=== PATIENT | male | born 1945 | race Caucasian/White ===

== ENCOUNTER → 2017-01-03 | Outpatient (REF) | payer OTHER ==
[~2017-01-03] MED LIST: ATEN25TA; HYDR25TA6; LEVA250T; LOPI600T; ZOCO40TA
== END ==
LOC: M LAB 13:18
PROVIDERS: ATTEND Surgery
DX: C44.41 Basal cell carcinoma of skin of scalp and neck (principal)

== ENCOUNTER → 2018-05-14 | Outpatient (REF) | payer OTHER | LOC: M SFHCLERA 09:44 | DX: L98.9 Disorder of the skin and subcutaneous tissue, unspecified (principal) | CPT/HCPCS: 88305 ==

== ENCOUNTER 2018-08-17 15:52 | Emergency (ER) | payer OTHER ==
[2018-08-17 16:35] LABS: BASO # 0.1 10^3/uL (0.0-0.2); BASO % 0.5 % (0.0-1.0); EOS # 0.2 10^3/uL (0.0-0.50); EOS % 1.8 % (0.0-3.0); HEMATOCRIT 38.2 % (42.0-52.0); HEMOGLOBIN 12.8 g/dl (13.5-17.5); IMMATURE GRANULOCYTE % 0.3 % (0-3.0); LYMPH # 1.1 10^3/uL (1.5-4.5); LYMPH % 10.8 % (24.0-44.0); MEAN CORPUSCULAR HGB CONC 33.5 g/dl (32.0-36.5); MEAN CORPUSCULAR VOLUME 86.6 fl (80.0-96.0); MONO # 1.1 10^3/uL (0.0-0.8); MONO % 10.8 % (0.0-5.0); NEUTROPHILS # 7.8 10^3/uL (1.8-7.7); NEUTROPHILS % 75.8 % (36.0-66.0); PLATELET COUNT, AUTOMATED 167 10^3/uL (150-450); RED BLOOD COUNT 4.41 10^6/uL (4.30-6.10); RED CELL DISTRIBUTION WIDTH 12.8 % (11.5-14.5); WHITE BLOOD COUNT 10.3 10^3/uL (4.0-10.0)
[2018-08-17 16:45] LABS: INR 0.93; PROTHROMBIN TIME 12.6 SECONDS (12.1-14.4)
[2018-08-17 16:46] LABS: PARTIAL THROMBOPLASTIN TIME 29.7 SECONDS (25.4-37.6)
[2018-08-17 16:55] LABS: AMORPHOUS SEDIMENT RFX SMALL (NEGATIVE); KETONE, URINE AUTO RFX NEGATIVE (NEGATIVE); MUCUS, URINE RFX SMALL (NEGATIVE); NITRITE, URINE AUTO RFX NEGATIVE (NEGATIVE); RBC, URINE AUTO RFX TNTC /HPF (0-3); SPECIFIC GRAVITY UR AUTO RFX 1.018 (1.002-1.035); SQUAM EPITHELIAL CELL UR AURFX 0 /HPF (0-6); URIC ACID CRYSTALS RFX SMALL; YEAST LIKE CELL URINE AUTO RFX SMALL
[2018-08-17 16:57] LABS: LEUKOCYTE ESTERASE UR AUTO RFX TRACE (NEGATIVE)
[2018-08-17 16:58] LABS: WBC, URINE AUTO RFX 17 /HPF (0-3)
[2018-08-17 17:02] LABS: ALBUMIN 3.5 GM/DL (3.2-5.2); ALKALINE PHOSPHATASE 66 U/L (45-117); ALT/SGPT 17 U/L (12-78); AMYLASE 32 U/L (25-115); ANION GAP 8 MEQ/L (8-16); AST/SGOT 13 U/L (7-37); BILIRUBIN,DIRECT 0.1 MG/DL (0.0-0.2); BILIRUBIN,TOTAL 0.6 MG/DL (0.2-1.0); BLOOD UREA NITROGEN 25 MG/DL (7-18); CALCIUM LEVEL 9.6 MG/DL (8.8-10.2); CARBON DIOXIDE LEVEL 25 MEQ/L (21-32); CHLORIDE LEVEL 107 MEQ/L (98-107); CREATININE FOR GFR 2.29 MG/DL (0.70-1.30); GLOMERULAR FILTRATION RATE 30.1 (>42); GLUCOSE, FASTING 115 MG/DL (70-100); LIPASE 123 U/L (73-393); POTASSIUM SERUM 3.7 MEQ/L (3.5-5.1); SODIUM LEVEL 140 MEQ/L (136-145); TOTAL PROTEIN 7.4 GM/DL (6.4-8.2)
[2018-08-17] MEDS: NS 1,000 ML IV (17:36)
[2018-08-17] MEDS ORDERED: NORCO, ANEXSIA 5/325MG TABLET (HYDROcodone/ACETAMINOPHEN) As Ordered (18:48)
[2018-08-17] MEDS: NORCO, ANEXSIA 5/325MG TABLET (HYDROcodone/ACETAMINOPHEN) PO (18:50)
[2018-08-17] MEDS: NORCO 5/325MG TABLET (BULK FOR ED) PO (19:46)
== END 2018-08-17 19:48 | disposition home or self-care (01) ==
LOC: M ED 15:52
DX: N20.1 Calculus of ureter (principal); R73.03 Prediabetes; I10 Essential (primary) hypertension; Z87.442 Personal history of urinary calculi; N40.0 Benign prostatic hyperplasia without lower urinary tract symptoms; K57.30 Diverticulosis of large intestine without perforation or abscess without bleeding; K76.89 Other specified diseases of liver; J30.2 Other seasonal allergic rhinitis; Z79.82 Long term (current) use of aspirin; Z79.84 Long term (current) use of oral hypoglycemic drugs; Z79.899 Other long term (current) drug therapy
CPT/HCPCS: 74176

== ENCOUNTER 2018-11-10 06:34 | Day surgery (SDC) | payer OTHER ==
[~2018-11-10] VITALS: Ht 182.9 cm; Wt 88.0 kg
[~2018-11-10 06:34] MED LIST changes: +ASPI81TA85 PO; +ATOR1TAB21 PO; +BACT800T5 PO; +CARV12.5 PO; +CARV25TA PO; +FLOM0.4C39 PO; +INDA125TA PO; +LOSA-4 PO; +METF500T4 PO; +NORCOTAB PO; +NS 1,000 ML IV ONE; +TERB250T12 PO
[2018-11-10] MEDS ORDERED: LIDOCAINE 2% INJ 100 MG/5 ML SDV (FOR ANES.) As Ordered ONE (07:09)
[2018-11-10] MEDS ORDERED: PROPOFOL 200 MG/20 ML VIAL As Ordered ONE (07:09)
--- NOTE | 2018-11-10 07:49 | ROOR ---
Patient Name: Dean Frey Procedure Date: 11/10/2018 7:31 AM Date of : 1945 Age: 72 Room: [facility] Gender: Male Note Status: Finalized Procedure: Total Colonoscopy to Cecum + Biopsy Polypectomy Indications: High risk colon cancer surveillance: Personal history of colonic polyps, Last colonoscopy: 2013 Providers: Kyler Gloria MD Referring MD: SHEILA SHIRLEY JR, MD Requesting Provider: Medicines: Monitored Anesthesia Care Complications: No immediate complications. Procedure: Pre-Anesthesia Assessment: - The heart rate, respiratory rate, oxygen saturations, blood pressure, adequacy of pulmonary ventilation, and response to care were monitored throughout the procedure. The Colonoscope was introduced through the anus and advanced to the cecum, identified by appendiceal orifice and ileocecal valve. The colonoscopy was performed without difficulty. The patient tolerated the procedure well. The quality of the bowel preparation was fair. Findings: The perianal and digital rectal examinations were normal. Non-bleeding internal hemorrhoids were found during retroflexion. The hemorrhoids were small and Grade I (internal hemorrhoids that do not prolapse). A diminutive polyp was found in the ascending colon. The polyp was sessile. The polyp was removed with a jumbo cold forceps. Resection and retrieval were complete. Multiple small and large-mouthed diverticula were found in the recto-sigmoid colon, sigmoid colon and descending colon. The exam was otherwise without abnormality on direct and retroflexion views. Impression: - Preparation of the colon was fair. - Non-bleeding internal hemorrhoids. - One diminutive polyp in the ascending colon, removed with a jumbo cold forceps. Resected and retrieved. - Diverticulosis in the recto-sigmoid colon, in the sigmoid colon and in the descending colon. - The examination was otherwise normal on direct and retroflexion views. - The exam was otherwise normal to the cecum. Recommendation: - Patient has a contact number available for emergencies. The signs and symptoms of potential delayed complications were discussed with the patient. Return to normal activities tomorrow. Written discharge instructions were provided to the patient. - High fiber diet. - Discharge patient to home. - Continue present medications. - Await pathology results. - Telephone GI clinic for pathology results in 1 week. - Repeat colonoscopy for symptoms only. - Return to referring physician. - The findings and recommendations were discussed with the patient's family. Kyler Gloria MD Kyler Gloria MD 11/10/2018 7:49:18 AM This report has been signed electronically. Number of Addenda: 0 Note Initiated On: 11/10/2018 7:31 AM Estimated Blood Loss: Estimated blood loss: none.
[2018-11-10 10:34] VITALS: BP 137/74
== END 2018-11-10 08:16 | disposition home or self-care (01) ==
LOC: M OPP 06:34
PROVIDERS: ATTEND Internal Medicine Gastroenterology
DX: D12.2 Benign neoplasm of ascending colon (principal); K57.30 Diverticulosis of large intestine without perforation or abscess without bleeding; K64.0 First degree hemorrhoids; Z86.010 Personal history of colon polyps

== ENCOUNTER → 2019-07-06 | Outpatient (REF) | payer OTHER ==
[~2019-07-06] MED LIST changes: +HYDR-3715 PO; -LOSA-4 PO; +LOSA100T50 PO; -NORCOTAB PO; -NS 1,000 ML IV ONE
== END ==
LOC: M SFHCPLAZ 17:04
PROVIDERS: ATTEND Dermatology
DX: D22.71 Melanocytic nevi of right lower limb, including hip (principal)

== ENCOUNTER → 2019-08-20 | Outpatient (REF) | payer OTHER ==
[~2019-08-20] MED LIST changes: +METF-791 PO; -METF500T4 PO
[2019-08-21 14:26] LABS: PSA % FREE 25.9 % (.); PSA FREE 1.14 ng/mL; PSA TOTAL 4.4 ng/mL (0.0-4.0)
== END ==
LOC: M LAB REF 12:25
PROVIDERS: ATTEND Internal Medicine
DX: N18.3 Chronic kidney disease, stage 3 (moderate) (principal); R97.20 Elevated prostate specific antigen [PSA]; I12.9 Hypertensive chronic kidney disease with stage 1 through stage 4 chronic kidney disease, or unspecified chronic kidney disease

== ENCOUNTER 2020-06-20 07:55 | Emergency (ER) | payer BC, OTHER ==
[~2020-06-20] VITALS: Ht 182.9 cm; Wt 89.4 kg
[~2020-06-20 07:55] MED LIST changes: -ASPI81TA85 PO; +ASPI81TA86 PO; -METF-791 PO; +METF-838 PO
[2020-06-20] MEDS ORDERED: FURO40TA2 (08:05)
[2020-06-20] MEDS ORDERED: ESCI10TA2 (08:05)
[2020-06-20] MEDS ORDERED: TIZA2CAP (08:06)
--- NOTE | 2020-06-20 09:00 | REP ---
Clinical: Acute cerebrovascular accident . Findings: Age-related atrophy and microvascular ischemic changes are appreciated. The ventricles and sulci are symmetric. Shah-white differentiation is maintained. There is no evidence for acute intracranial hemorrhage, mass/mass effect, pathology or infarction. No extra-axial fluid collection. Calvarium is intact. Paranasal sinuses and mastoid air cells are clear. Impression: Age related atrophy and microvascular ischemic changes. No acute intracranial hemorrhage, infarction, or mass/mass effect. Electronically Signed by Bon Hager MD 06/20/2020 08:50 A
[2020-06-20 09:14] LABS: BASO % 0.6 % (0.0-1.0); EOS # 0.2 10^3/uL (0.0-0.5); EOS % 3.1 % (0.0-3.0); HEMATOCRIT 38.1 % (42.0-52.0); HEMOGLOBIN 12.7 g/dl (13.5-17.5); LYMPH # 1.4 10^3/uL (1.5-5.0); LYMPH % 21.9 % (24.0-44.0); MEAN CORPUSCULAR HEMOGLOBIN 28.9 pg (27.0-33.0); MEAN CORPUSCULAR HGB CONC 33.3 g/dl (32.0-36.5); MEAN CORPUSCULAR VOLUME 86.6 fl (80.0-96.0); MONO # 0.6 10^3/uL (0.0-0.8); MONO % 9.7 % (0.0-5.0); NEUTROPHILS # 4.2 10^3/uL (1.5-8.5); NEUTROPHILS % 64.4 % (36.0-66.0); PLATELET COUNT, AUTOMATED 122 10^3/uL (150-450); WHITE BLOOD COUNT 6.5 10^3/uL (4.0-10.0)
--- NOTE | 2020-06-20 09:21 | REP ---
Clinical: Acute cerebrovascular accident . Comparison: 12/28/2010 . Findings: The mediastinum and cardiac silhouette are stable and within normal limits for portable technique. The lung horton are clear without acute consolidation, effusion, or pneumothorax. Skeletal structures are intact. Impression: No acute cardiopulmonary process appreciated. Electronically Signed by Bon Hager MD 06/20/2020 09:12 A
[2020-06-20 09:22] LABS: INR 1.08; PROTHROMBIN TIME 13.7 SECONDS (11.8-14.0)
[2020-06-20 09:23] LABS: PARTIAL THROMBOPLASTIN TIME 29.7 SECONDS (25.0-38.4)
[2020-06-20 09:48] LABS: CALCIUM LEVEL 9.5 MG/DL (8.8-10.2); CREATININE FOR GFR 1.53 MG/DL (0.70-1.30); GLOMERULAR FILTRATION RATE 47.6 (>42); MB/CK RELATIVE INDEX 3.23 (< OR =4); POTASSIUM SERUM 3.6 MEQ/L (3.5-5.1); TROPONIN I 0.13 NG/ML (< 0.10)
[2020-06-20 12:44] LABS: CK-MB VALUE MASS 1.9 NG/ML (<3.6); MB/CK RELATIVE INDEX 3.28 (< OR =4); TROPONIN I 0.13 NG/ML (< 0.10)
[2020-06-20 15:40] LABS: CK-MB VALUE MASS 1.9 NG/ML (<3.6); MB/CK RELATIVE INDEX 3.52 (< OR =4); TROPONIN I 0.12 NG/ML (< 0.10)
[2020-06-20 16:51] VITALS: BP 165/77
--- NOTE | 2020-06-21 07:09 | ECGEPIP ---
[facility] - ED Test Date: 2020-06-20 Pat Name: TONA SANTAMARIA Department: Room: - Gender: Male Welt Beater: teresa gonzalez : 1945 Requested By: Polo Ely Order Number: [id number] Reading MD: Solomon Rodriguez Measurements Intervals [place] Rate: 64 P: 14 AR: 139 QRS: -36 QRSD: 145 T: 1 QT: 422 QTc: 436 Interpretive Statements SINUS RHYTHM Left anterior fascicular block RIGHT BUNDLE BRANCH BLOCK Nonspecific ST-T wave abnormalities Comparison tracing not on file Electronically Signed on 06-21-2020 7:09:21 EDT by Solomon Rodriguez
--- NOTE | 2020-06-21 07:23 | ECGEPIP ---
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
== END 2020-06-20 17:08 | disposition home or self-care (01) ==
LOC: M ED 07:55
DX: H81.10 Benign paroxysmal vertigo, unspecified ear (principal); E11.9 Type 2 diabetes mellitus without complications; I10 Essential (primary) hypertension; E78.5 Hyperlipidemia, unspecified; M54.9 Dorsalgia, unspecified; I45.10 Unspecified right bundle-branch block; J30.1 Allergic rhinitis due to pollen; Z79.899 Other long term (current) drug therapy; Z79.84 Long term (current) use of oral hypoglycemic drugs; Z79.82 Long term (current) use of aspirin

== ENCOUNTER → 2020-11-08 | Outpatient (CLI) | payer BC ==
[~2020-11-08] MED LIST changes: +ESCI10TA2; +FURO40TA2; +TIZA2CAP
--- NOTE | 2020-11-08 13:02 | REPPI ---
INDICATION: ELEVATED PSA. COMPARISON: None. TECHNIQUE: Real-time sonographic evaluation of prostate performed utilizing transrectal probe. FINDINGS: Prostate measures 5.1 x 5.0 x 3.0 cm, total volume 39.4 mL. Echotexture is heterogeneous with small scattered cysts and calcifications. No focal nodule is seen. Seminal vesicles are symmetrical. IMPRESSION: Ultrasound guidance was provided for Dr. Olivares who performed ultrasound-guided biopsy of the prostate. <Electronically signed by Osvaldo Shah > 11/08/20 9520
== END ==
LOC: M SMT PRO 09:19
PROVIDERS: ATTEND Urology
DX: C61 Malignant neoplasm of prostate (principal); R97.20 Elevated prostate specific antigen [PSA]; R33.9 Retention of urine, unspecified
CPT/HCPCS: 76872; 76942; G0416

== ENCOUNTER → 2020-12-16 | Outpatient (CLI) | payer BC ==
[~2020-12-16] MED LIST changes: +ESCI10TA16; -ESCI10TA2; +ISOVUE-370 76% 100ML VIAL As Ordered ONE; +OXYB-54; +TAMS1CAP17
--- NOTE | 2020-12-16 17:51 | REP ---
INDICATION: PROSTATE CA. COMPARISON: None. TECHNIQUE/RADIOTRACER AND DOSE: Following the intravenous administration of 21.2 mCi technetium 99 M MDP, images of the whole body are obtained in various projections. FINDINGS: Mild arthritic uptake is noted in the cervical facet joints. There is mild curvature of the thoracic spine convex to the right. Mild arthritic uptake is seen symmetrically in the wrists. There is arthritic uptake seen at the left knee joint. There is no compelling scintigraphic evidence of osseous metastases. Renal and bladder activity are seen. IMPRESSION: No compelling scintigraphic evidence of osseous metastases. <Electronically signed by Osvaldo Shah > 12/16/20 [id number]
--- NOTE | 2020-12-18 09:45 | REP ---
INDICATION: PROSTATE CA. COMPARISON: 08/17/2018 TECHNIQUE: Axial contrast-enhanced images from the lung bases to the pubic symphysis using 100 cc Isovue 370 intravenous contrast material. Delayed images of the abdomen along with coronal and sagittal reformations obtained. This CT examination was performed using the following dose reduction techniques: Automated exposure control, adjustment of mA and/or kv according to the patient's size, and the use of iterative reconstruction technique. FINDINGS: Liver demonstrates innumerable scattered primarily sub cm cysts along with 2 cm cyst adjacent to the gallbladder fossa and 4.3 cm cyst at the lower pole of the right hepatic lobe. Spleen, pancreas, gallbladder, bilateral adrenal glands and kidneys are essentially normal. The enteric system including stomach, small, and large bowel appears normal. No evidence for obstruction or acute inflammatory process. Normal terminal ileum and appendix are identified in the right lower quadrant. Diverticulosis noted without acute diverticulitis. Pelvis demonstrates normal bladder and heterogeneous prostate gland measuring 3.9 by 4.6 cm maximal AP by transverse diameter. No ascites. No free air. No intraperitoneal or retroperitoneal adenopathy. Abdominal aorta and vasculature appear normal. Musculoskeletal structures demonstrate age-related degenerative changes without acute osseous abnormality. IMPRESSION: 1. Benign-appearing hepatic cysts. 2. Diverticulosis without acute diverticulitis. 3. Mild prostatomegaly. 4. No ascites, focal inflammatory stranding, adenopathy, or obvious metastatic disease. <Electronically signed by Bon Hager > 12/18/20 0941
== END ==
LOC: M RAD 09:41
PROVIDERS: ATTEND Urology
DX: C61 Malignant neoplasm of prostate (principal); K76.89 Other specified diseases of liver
CPT/HCPCS: 74177; 78306; A9503; Q9967

== ENCOUNTER → 2021-01-03 | Outpatient (CLI) | payer BC ==
[~2021-01-03] MED LIST changes: -ISOVUE-370 76% 100ML VIAL As Ordered ONE
--- NOTE | 2021-01-03 15:47 | RADONC.CN ---
Radiation Oncology Hx/Consult Radiation Oncology Consult Date of Service: Jan 03, 2021 Pt Identifier Dean Frey is a 75 year old male with high risk prostate cancer cT1c [place] 4+4=8 (3/12 cores positive for malignancy) PSA 5.2. He is seen today for consideration of definitive RT. He has already begun ADT with Dr. Olivares. Diagnosis/Treatment History Oncologic History Followed by Dr Olivares for elevated PSA: 08/20/19 4.4 09/27/20 5.96 11/08/20 5.2 11/08/20 TRUS biopsy 40 cc gland Ralph 4+4=8 left mid 1/2 cores [place] 3+4=7 left base 1/2 cores Ralph 3+3=6 right mid 1/2 cores 12/16/20 bone scan, ct abdomen pelvis negative IPSS 4 SOLEDAD 1 Interval History Feels well. Takes flomax QHS with good effect. Regular BMs, no bleeding. No weak stream. Has some PVR, double voids as needed. Feels he empties well. Has ED longstanding. Occasional hot flashes not bothersome from ADT so far. Appetite good weight stable. Past Medical History: DMII HPL HTN Past Surgical History: TURP 2010 Hernia surgery Family History: Father prostate cancer Social History: 20 pack year former smoker Non-drinker Allergies / Meds Allergies: Coded Allergies: SEASONAL ALLERGIES (Verified Allergy, Unknown, 11/05/18) Home Meds Reported Medications Oxybutynin Chloride (Oxybutynin Chloride ER) 5 Mg Tab.er.24 01/03/21 Tamsulosin Hcl (Tamsulosin HCl) 0.4 Mg Capsule 01/03/21 Tizanidine HCl (Tizanidine HCl) 2 Mg Capsule 06/20/20 Escitalopram Oxalate (Escitalopram Oxalate) 10 Mg Tablet 06/20/20 Furosemide (Furosemide) 40 Mg Tablet 06/20/20 Carvedilol (Carvedilol) 12.5 Mg Tab, 12.5 MG PO QAM for 30 Days, #60 TAB 08/17/18 Aspirin (Aspir 81) 81 Mg Tab, 81 MG PO DAILY for pain for 30 Days, #30 TAB 08/17/18 Atorvastatin Calcium (Atorvastatin Calcium) 20 Mg Tab, 20 MG PO DAILY 08/17/18 Metformin HCl (Metformin HCl ER) 500 Mg Tab, 500 MG PO BID 08/17/18 Losartan Potassium (Losartan Potassium) 100 Mg Tab, 50 MG PO DAILY 08/17/18 Review of Systems Constitutional: Denies: Chills, Fever, Night Sweats Eyes: Denies: Pain, Vision change HEENT: Denies: Head Aches, Dysphagia, Sore Throat Skin: Denies: Rash, Lesions, Bruising Pulmonary: Denies: Dyspnea, Cough Cardiovascular: Denies: Chest Pain, Palpitations, Edema Gastrointestinal: Denies: Nausea, Vomiting, Abdominal Pain, Diarrhea Genitourinary: Denies: Dysuria, Frequency, Incontinence Hematologic: Denies: Bruising, Petecchia, Enlarged Lymph Nodes Musculoskeletal: Denies: Neck pain, Back pain Neurological: Denies: Weakness, Numbness, Incoordination Psych: Reports: Mood Normal; Denies: Memory Issues, Thoughts of Self Harm Vital Signs Ht 72" Wt 194 lb BMI 26 T 98 P 72 RR 18 BP 160/88 O2 98% Pain 0 Fatigue 0 General Exam: Positive: Alert, Cooperative, No Acute Distress Eye Exam: Positive: PERRLA, EOMI ENT EXAM: Positive: Mucous membr. moist/pink, Pharynx Normal Neck Exam: Negative: Thyromegaly, Lymphadenopathy Chest Exam: Positive: Normal air movement; Negative: Rales, Rhonchi, Wheezing Heart Exam: Positive: Rate Normal, Regular Rhythm Abdomen Exam: Positive: Soft; Negative: Tenderness, Mass Male Exam: Positive: Normal Prostate, Normal Sphincter Tone Extremity Exam: Negative: Edema, Tenderness Skin Exam: Positive: Nl turgor and temperature; Negative: Rash Neuro Exam: Positive: Normal Gait, Normal Speech, Cranial Nerves 3-12 NL Psych Exam: Negative: Mental status NL, Mood NL, Anxiety, Memory Intact, Oriented x 3, Other Diagnostic and Laboratory Diagnostic Review Radiologic images, relevant labs and pathology reports were personally reviewed and discussed with Mr. Frey. Assessment and Plan Impression Mr. Frey is a 75 year old male with a history of high risk prostate cancer cT1c [place] 4+4=8 (3/12 cores positive for malignancy) PSA 5.2. He is seen today for consideration of definitive RT. He has already begun ADT with Dr. Olivares. Stage High risk prostate cancer [id number] [place] 4+4=8 (3/12 cores positive) PSA 5.2 Performance Status ECOG 0 Plan We had an extensive discussion with Mr. Frey regarding the diagnosis at hand and available therapeutic options. He is a healthy man, with minimal LUTs at baseline. He has decided that RT is his preferred treatment. Given his minimal symptoms and low volume Ralph 8 on biopsy I think he would be appropriate for SBRT versus moderately hypofractionated RT. longterm outcomes are excellent with either schedule. He opts for SBRT for convenience and knows from prior discussions with Dr. Olivares that ADT duration for high risk is recommended minimum 18 months. We also discussed the pros and cons of SpaceOAR implant in particular with SBRT to reduce the risk of acute and late rectal toxicity. I offer this in conjunction with fiducial marker placement. Our next case date is 01/19/21, which would be convenient for the patient, so we will proceed. For SBRT I will give 36.25 Gy in 5 fractions, I will also give a prophylactic dose to the pelvic LN 25 Gy in 5 fractions with VMAT and non-coplanar arc-based planning. We discussed the logistics of receiving radiation therapy in detail including the need for a 1-time planning session. This can happen the week of 01/30/21 which is ~ 2 weeks post planned SpaceOAR implant date. We reviewed the side of effects of RT which are generally mild and self limited including increased urinary frequency and nocturia, which tends to resolve 1-2 months after treatment, as well as the rare possibility of late rectal bleeding which is further mitigated by SpaceOAR. We also discussed the lemuel-procedural risks of SpaceOAR including bleeding and infection which are rare. After discussing the risks, benefits and alternatives to radiation therapy, Mr. Frey was amenable to pursuing radiotherapy. All questions were answered to the patient's satisfaction. We instructed the patient that if there were any questions,concerns or changes in clinical status in the interim to contact us. Recommendations SBRT prostate as described above SpaceOAR/fiducials 01/19/21 Simulation week of 01/30/[address] Olivares as previously discussed Total time of (51) minutes was spent preparing for the visit (5), obtaining HPI (6), examining the patient (5), reviewing diagnostic tests (11), discussing management options (12), coordinating care (2), and writing this note (10). STEFANY HATFIELD MD Jan 03, 2021 15:46
== END ==
LOC: M ONCR 09:55
PROVIDERS: ATTEND General Practice
DX: C61 Malignant neoplasm of prostate (principal); E11.9 Type 2 diabetes mellitus without complications; E78.5 Hyperlipidemia, unspecified; I10 Essential (primary) hypertension; Z87.891 Personal history of nicotine dependence; Z79.899 Other long term (current) drug therapy

== ENCOUNTER → 2021-01-11 | Outpatient (REF) | payer BC ==
[~2021-01-11] MED LIST changes: +CIPR500T39 PO; +LORA1TAB4 PO
== END ==
LOC: M LAB REF 14:30
PROVIDERS: ATTEND Dermatology
DX: L57.0 Actinic keratosis (principal)

== ENCOUNTER → 2021-01-19 | Outpatient (CLI) | payer BC ==
[~2021-01-19] MED LIST changes: +LIDOCAINE 2% MDV 20ML VIAL XX ONE; +LIDOCAINE VISCOUS 2% SOLN 15ML UDC XX ONE
--- NOTE | 2021-01-19 14:54 | ROOPDOC ---
[facility] Report Of Operation Report of Operation [facility] Radiation Oncology Fiducial marker procedure note Name: Dean Frey D.O.B: [birth year] Procedure diagnosis: C61.0 Prostate cancer Procedure date/time: 01/19/21 1300 Physician: Jonathon Hatfield MD Implant(s): Fiducials (2 seeds per needle): Qfix [id number] Lot# [id number] Exp 05/01/2024 Qty 2 Description of procedure: Informed consent for placement of fiducial marker seeds (4) was obtained pre- procedure. A timeout was completed. The patient was placed in the high lithotomy position and a rectal exam with 2% viscous lidocaine was completed. The rectal vault was empty of stool. A chl orhexidine prep of the perineal skin was completed. The trans-rectal ultrasound probe was introduced, the prostate and the rectal bulb were well visualized. 2% lidocaine was infiltrated in the skin and soft tissues of the perineum via a 23 Ga spinal needle under ultrasound guidance. 9cc of local was used. Patient tolerated the block well. Next, fiducial marker seeds were placed via pre-loaded 18 Ga needles under ultrasound guidance. 2 seeds were placed in the left anterior base and apex, respectively. 2 seeds were placed at the right posterior base and apex, respectively. The ultrasound probe was removed from the rectum. Post procedure vital signs were WNL. The patient tolerated the procedure well without significant discomfort. EBL: <1cc Disposition: Simulation for radiation therapy will occur in the next 1-2 weeks The patient will complete antibiotic prophylaxis this evening JONATHON HATFIELD MD Jan 19, 2021 14:53
== END ==
LOC: M ONCR 12:54
PROVIDERS: ATTEND General Practice
DX: C61 Malignant neoplasm of prostate (principal)

== ENCOUNTER 2021-02-17 12:50 | Outpatient (RCR) | payer BC ==
[~2021-02-17 12:50] MED LIST changes: -LIDOCAINE 2% MDV 20ML VIAL XX ONE; -LIDOCAINE VISCOUS 2% SOLN 15ML UDC XX ONE
== END 2021-03-01 ==
LOC: M ONCR 12:50
PROVIDERS: ATTEND General Practice
DX: C61 Malignant neoplasm of prostate (principal)

== ENCOUNTER → 2021-05-26 | Outpatient (CLI) | payer BC ==
[2021-05-26 12:42] LABS: PROSTATIC SPECIFIC AG MONITOR 0.12 NG/ML (< 4.00)
== END ==
LOC: M ONCR 11:08
PROVIDERS: ATTEND General Practice
DX: C61 Malignant neoplasm of prostate (principal)

== ENCOUNTER → 2021-05-31 | Outpatient (CLI) | payer BC ==
--- NOTE | 2021-05-31 14:50 | RADONC ---
Radiation Oncology Hx/FUP Radiation Oncology Hx/FUP Date of Service: May 31, 2021 Pt Identifier Dean Frey is a 75 year old male seen for a followup visit today at the department of radiation oncology for a history of high risk prostate cancer cT1c [place] 4+4=8 (3/12 cores positive for malignancy overall, single core 4+4=8) PSA 5.2. He completed SBRT 36.25 Gy in 5 fractions on 02/17/21. He remains on ADT with Dr. Olivares. Diagnosis/Treatment History Oncologic History Followed by Dr Olivares for elevated PSA: 08/20/19 4.4 09/27/20 5.96 11/08/20 5.2 05/26/21 0.12 Testosterone 05/26/21 25 11/08/20 TRUS biopsy 40 cc gland Ralph 4+4=8 left mid 1/2 cores [place] 3+4=7 left base 1/2 cores [place] 3+3=6 right mid 1/2 cores 12/16/20 bone scan, ct abdomen pelvis negative IPSS 4 [place] 1 Received SBRT 36.25 Gy in 5 fractions 02/13/21-02/17/21 SpaceOAR auth was unable to be obtained Interval History Tiffany reports he is doing well. Having occasional hot flashes, not terribly bothersome. Is getting up 2-3 x nightly which is also tolerable, near baseline prior to RT. No issues with stream or emptying. Voids 3-4 times daily also baseline. Had some increased bowel frequency and urgency around the time of treatment which has since subsided. Now 1x BM daily. No blood in urine or stool. Current Therapy ADT per Dr. Olivares plan for 18-24 months Stage High risk prostate cancer [id number] [place] 4+4=8 (3/12 cores positive) PSA 5.2 Social History: 20 pack year former smoker Non-drinker Allergies / Meds Allergies: Coded Allergies: SEASONAL ALLERGIES (Verified Allergy, Unknown, 11/05/18) Home Meds Active Scripts Lorazepam (Lorazepam) 1 Mg Tablet, 1 TAB PO DAILY for anxiety MDD 2 Tablet(s), #1 TAB Take 30 minutes prior to your procedure. Prov:STEFANY HATFIELD MD 01/13/21 Ciprofloxacin HCl (Ciprofloxacin HCl) 500 Mg Tablet, 1 TAB PO BID for 1 Day, #2 TAB Take 1 tab in the morning before your procedure. Take the second tab in the evening after your procedure. Prov:STEFANY HATFIELD MD 01/13/21 Reported Medications Oxybutynin Chloride (Oxybutynin Chloride ER) 5 Mg Tab.er.24 01/03/21 Tamsulosin Hcl (Tamsulosin HCl) 0.4 Mg Capsule 01/03/21 Tizanidine HCl (Tizanidine HCl) 2 Mg Capsule 06/20/20 Escitalopram Oxalate (Escitalopram Oxalate) 10 Mg Tablet 06/20/20 Furosemide (Furosemide) 40 Mg Tablet 06/20/20 Carvedilol (Carvedilol) 12.5 Mg Tab, 12.5 MG PO QAM for 30 Days, #60 TAB 08/17/18 Aspirin (Aspir 81) 81 Mg Tab, 81 MG PO DAILY for pain for 30 Days, #30 TAB 08/17/18 Atorvastatin Calcium (Atorvastatin Calcium) 20 Mg Tab, 20 MG PO DAILY 08/17/18 Metformin HCl (Metformin HCl ER) 500 Mg Tab, 500 MG PO BID 08/17/18 Losartan Potassium (Losartan Potassium) 100 Mg Tab, 50 MG PO DAILY 08/17/18 Review of Systems Review of Systems Constitutional: Denies: Fatigue, Weight Loss Eyes: Denies: Pain HEENT: Denies: Head Aches Skin: Denies: Rash Pulmonary: Denies: Dyspnea, Cough Cardiovascular: Denies: Chest Pain Gastrointestinal: Denies: Abdominal Pain, Diarrhea, Hematochezia Genitourinary: Denies: Dysuria, Frequency, Hematuria Hematologic: Denies: Bruising Musculoskeletal: Denies: Neck pain, Back pain Neurological: Denies: Weakness, Numbness Psych: Reports: Mood Normal Physical Examination Vital Signs Wt 192 lbs T 97 P 80 RR 16 BP 110/68 O2 99% Pain 0 Fatigue 0 General Exam: Positive: Alert, Cooperative, No Acute Distress Eye Exam: Positive: PERRLA, EOMI ENT EXAM: Positive: Atraumatic Neck Exam: Positive: Supple Chest Exam: Positive: Clear to auscultation Heart Exam: Positive: Rate Normal Abdomen Exam: Positive: Soft Extremity Exam: Negative: Edema Skin Exam: Positive: Nl turgor and temperature Neuro Exam: Positive: Normal Gait, Normal Speech, Cranial Nerves 3-12 NL Psych Exam: Positive: Mental status NL Other Physical Findings : deferred LORETA low PSA Diagnostic and Laboratory Diagnostic Review Radiologic images, relevant labs and pathology reports were personally reviewed and discussed with Mr. Frey. Assessment and Plan Impression Assessment Mr. Frey is a 75 year old male with a history of high risk prostate cancer cT1c [place] 4+4=8 (3/12 cores positive for malignancy overall, single core 4+4=8) PSA 5.2. He completed SBRT 36.25 Gy in 5 fractions on 02/17/21. He remains on ADT with Dr. Olivares. PSA appropriately suppressed on ADT. He is not having any bothersome urinary or bowel symptoms. Discussed continued follow up next in 6 months Performance Status ECOG 0 Plan PSA/testosterone in 6 months Mr. Frey was encouraged to call with questions or concerns in the interim period. Billing Statement Total time of [23] minutes was spent preparing for the visit [1], obtaining HPI [4], examining the patient [1], reviewing diagnostic tests [2], discussing management options [6], coordinating care [1], and writing this note [8]. STEFANY HATFIELD MD May 31, 2021 14:49
== END ==
LOC: M ONCR 13:49
PROVIDERS: ATTEND General Practice
DX: C61 Malignant neoplasm of prostate (principal); Z79.899 Other long term (current) drug therapy; Z87.891 Personal history of nicotine dependence; Z92.3 Personal history of irradiation

== ENCOUNTER → 2021-06-15 | Outpatient (CLI) | payer BC ==
--- NOTE | 2021-06-15 13:52 | PFTRPT ---
Height: 72.00 Inches Weight: 193.00 Lbs BSA: 2.10 Diagnosis: R05 DATE: 06/15/2021 ORDERING PHYSICIAN: LUPE Cardoza Pre and post bronchodilator studies have excellent technical quality. Forced vital capacity is normal. FEV1 is in proportion. Obstructive index is therefore normal. Expiratory limit of the flow-volume loop is normal. No significant bronchodilator response is identified. Total lung capacity is normal. Residual volume is in proportion. Diffusing capacity although reduced is appropriate for alveolar volume. Hemoglobin is acceptable at 12.1. Airway resistance and conductance are normal. IMPRESSION: Reduction in the absolute diffusing capacity appropriate for alveolar volume. Please correlate clinically. MTDD
== END ==
LOC: M CARPUL 13:05
PROVIDERS: ATTEND Nurse Practitioner Family
DX: R05 Cough (principal)

== ENCOUNTER → 2021-06-20 | Outpatient (CLI) | payer BC ==
[~2021-06-20] MED LIST changes: +METHACHOLINE KIT (J7674) INH ONE
--- NOTE | 2021-06-20 16:32 | PFTRPT ---
Site: [facility], [address] [place], [address] ID: [id number] Name: TONA SANTAMARIA Visit Date: 06/20/2021 Second ID: [id number] Referring Doctor: AURELIA PRUITT Reviewing Doctor: Ortega Wright MD Corn Cooker: Janis LESLIE RRT Age: 75 : 1945 Sex: Male Race: Height: 72.00 Inches Weight: 195.00 Lbs BSA: 2.11 Order IDs: [id number] Requested Test(s): <RESP-PFT.METH CHAL> Diagnosis: R05 of albuterol for post bronchodilator. Review Status: Not Reviewed Pre-Bronch Post-Bronch Pred Actual %Pred Actual %Chng SPIROMETRY FVC (L) 4.56 4.74 104 4.52 -4 FEV1 (L) 3.30 3.62 109 3.38 -6 FEV1/FVC (%) 72 76 105 75 -1 FEF 25% (L/sec) 7.12 7.41 104 6.62 -10 FEF 50% (L/sec) 3.84 3.80 99 3.27 -14 FEF 75% (L/sec) 1.09 1.04 95 0.62 -40 FEF 25-75% (L/sec) 2.39 2.99 124 2.22 -25 FEF Max (L/sec) 8.23 7.85 95 7.29 -7 FIVC (L) 3.79 4.50 18 FIF 50% (L/sec) 4.32 6.89 159 7.95 15 FIF Max (L/sec) 6.90 8.40 21 Expiratory Time (sec) 6.55 5.79 -11 Back Extrap Vol (L) 0.13 0.12 -4 Time To FEFmax (sec) 0.098 0.087 -11
== END ==
LOC: M CARPUL 13:53
PROVIDERS: ATTEND Nurse Practitioner Family
DX: R05 Cough (principal)

== ENCOUNTER → 2021-09-26 | Outpatient (REF) | payer BC ==
[~2021-09-26] MED LIST changes: -METHACHOLINE KIT (J7674) INH ONE; -TERB250T12 PO; +TERB250T91 PO
[2021-09-27 16:57] LABS: TOTAL PROTEIN 6.5 GM/DL (6.4-8.2)
== END ==
LOC: M LAB REF 16:38
PROVIDERS: ATTEND Internal Medicine
DX: I13.10 Hypertensive heart and chronic kidney disease without heart failure, with stage 1 through stage 4 chronic kidney disease, or unspecified chronic kidney disease (principal); N18.4 Chronic kidney disease, stage 4 (severe)

== ENCOUNTER → 2021-11-29 | Outpatient (CLI) | payer BC ==
[~2021-11-29] MED LIST changes: +ASPI1CHW3 PO; +TRAZ-257; +ZOLP10TA2
--- NOTE | 2021-11-29 15:30 | RADONC ---
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 He completed SBRT 36.25 Gy in 5 fractions on 02/17/21. He remains on ADT with Dr. Olivares. Diagnosis/Treatment History Oncologic History Followed by Dr Olivares for elevated PSA: 08/20/19 4.4 09/27/20 5.96 11/08/20 5.2 05/26/21 0.12 Testosterone 05/26/21 25 11/08/20 TRUS biopsy 40 cc gland [place] 4+4=8 left mid 1/2 cores [place] 3+4=7 left base 1/2 cores [place] 3+3=6 right mid 1/2 cores 12/16/20 bone scan, ct abdomen pelvis negative Interval History Dean reports no problems with bowel. He has some daytime frequency and urgency much as before. He continues on oxybutynin and is tolerating it well. He has has been experiencing some anxiety and insomnia, recently started ambien and trazodone with excellent effect. Working on some pulmonary issues currently as well. Appetite good, had good holidays with grandchildren. Current Therapy ADT per Dr. Olivares 18-24 month course recommended Stage High risk prostate cancer [id number] [place] 4+4=8 (3/12 cores positive) PSA 5.2 Social History: 20 pack year former smoker Non-drinker Allergies / Meds Allergies: Coded Allergies: SEASONAL ALLERGIES (Verified Allergy, Unknown, 11/05/18) Home Meds Reported Medications Zolpidem Tartrate (Zolpidem Tartrate) 10 Mg Tablet, 1 QHS 11/29/21 Trazodone HCl (Trazodone HCl) 100 Mg Tablet, 1 QHS 11/29/21 Aspirin (Aspirin) 81 Mg Tab.chew, 1 TAB PO DAILY for pain for 30 Days, #30 TAB 11/29/21 Oxybutynin Chloride (Oxybutynin Chloride ER) 5 Mg Tab.er.24 01/03/21 Furosemide (Furosemide) 40 Mg Tablet 06/20/20 Carvedilol (Carvedilol) 12.5 Mg Tab, 12.5 MG PO QAM for 30 Days, #60 TAB 08/17/18 Atorvastatin Calcium (Atorvastatin Calcium) 20 Mg Tab, 20 MG PO DAILY 08/17/18 Metformin HCl (Metformin HCl ER) 500 Mg Tab, 500 MG PO BID 08/17/18 Losartan Potassium (Losartan Potassium) 100 Mg Tab, 50 MG PO DAILY 08/17/18 Discontinued Reported Medications Tamsulosin Hcl (Tamsulosin HCl) 0.4 Mg Capsule 01/03/21 Tizanidine HCl (Tizanidine HCl) 2 Mg Capsule 06/20/20 Escitalopram Oxalate (Escitalopram Oxalate) 10 Mg Tablet 06/20/20 Discontinued Scripts Lorazepam (Lorazepam) 1 Mg Tablet, 1 TAB PO DAILY for anxiety MDD 2 Tablet(s), #1 TAB Take 30 minutes prior to your procedure. Prov:STEFANY HATFIELD MD 01/13/21 Ciprofloxacin HCl (Ciprofloxacin HCl) 500 Mg Tablet, 1 TAB PO BID for 1 Day, #2 TAB Take 1 tab in the morning before your procedure. Take the second tab in the evening after your procedure. Prov:STEFANY HATFIELD MD 01/13/21 Review of Systems Review of Systems Constitutional: Reports: Normal appetite Pulmonary: Reports: Dyspnea; Denies: Cough Cardiovascular: Denies: Edema Gastrointestinal: Denies: Diarrhea, Constipation, Hematochezia Genitourinary: Reports: Frequency; Denies: Retention Psych: Reports: Mood Normal, Other Psych (Insomnia) Physical Examination Vital Signs Ht 72" Wt 197 lbs BMI 27 T 97.4 P 83 RR 18 BP 117/74 O2 96% Pain 0 Fatigue 0 General Exam: Alert, Cooperative, No Acute Distress Eye Exam: PERRLA, EOMI ENT EXAM: Atraumatic Neck Exam: Supple Heart Exam: Rate Normal Abdomen Exam: Soft Extremity Exam: Negative: Edema Skin Exam: Nl turgor and temperature Neuro Exam: Normal Gait, Normal Speech, Cranial Nerves 3-12 NL Psych Exam: Mental status NL Diagnostic and Laboratory Diagnostic Review Radiologic images, relevant labs and pathology reports were personally reviewed and discussed with Mr. Frey. Assessment and Plan Impression Assessment Mr. 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 He completed SBRT 36.25 Gy in 5 fractions on 02/17/21. He remains on ADT with Dr. Olivares. He is doing well overall, no severe late sequelae of RT although he has some persistent urgency, no nocturia. No bowel complaints. PSA is appropriately suppressed 0.03. Plan for 1 additional eligard injection per Dr. Olivares. Discussed the kinetics of PSA expected after ADT wears off. I will see him back in 6 months with PSA/testosterone. Performance Status ECOG 0 Plan Follow up in 6 months with PSA/testosterone Mr. Frey was encouraged to call with questions or concerns in the interim period. Billing Statement Total time of [24] minutes was spent preparing for the visit [1], obtaining HPI [4], examining the patient [2], reviewing diagnostic tests [3], discussing management options [5], coordinating care [2], and writing this note [7]. STEFANY HATFIELD MD Nov 29, 2021 15:30
== END ==
LOC: M ONCR 13:47
PROVIDERS: ATTEND General Practice
DX: C61 Malignant neoplasm of prostate (principal); J30.89 Other allergic rhinitis; Z92.3 Personal history of irradiation; Z79.899 Other long term (current) drug therapy

== ENCOUNTER → 2022-01-29 | Outpatient (REF) | payer BC ==
[~2022-01-29] MED LIST changes: +LOSA100T45 PO; -LOSA100T50 PO
[2022-01-30 14:17] LABS: FOLATE 6.2 NG/ML
== END ==
LOC: M LAB REF 12:33
PROVIDERS: ATTEND Internal Medicine
DX: D64.9 Anemia, unspecified (principal)

== ENCOUNTER 2022-01-31 14:10 | Day surgery (SDC) | payer BC ==
[~2022-01-31] VITALS: Ht 182.9 cm; Wt 81.2 kg
[~2022-01-31 14:10] MED LIST changes: +NS 1,000 ML IV ONE
[2022-01-31] MEDS ORDERED: LIDOCAINE 2% 100MG/5ML SDV (FOR ANES.) As Ordered ONE (15:44)
[2022-01-31] MEDS ORDERED: propofoL 200 MG/20 ML VIAL As Ordered ONE (15:44)
[2022-01-31 16:40] VITALS: BP 170/78
== END 2022-01-31 16:40 | disposition home or self-care (01) ==
LOC: M OPP 14:10
PROVIDERS: ATTEND Internal Medicine Gastroenterology
DX: K62.5 Hemorrhage of anus and rectum (principal); K62.7 Radiation proctitis; K57.30 Diverticulosis of large intestine without perforation or abscess without bleeding; K55.20 Angiodysplasia of colon without hemorrhage; K64.0 First degree hemorrhoids; Z79.82 Long term (current) use of aspirin; Z79.84 Long term (current) use of oral hypoglycemic drugs; Z79.899 Other long term (current) drug therapy; Z85.46 Personal history of malignant neoplasm of prostate; Z87.891 Personal history of nicotine dependence

== ENCOUNTER → 2022-02-01 | Outpatient (REF) | payer BC ==
[~2022-02-01] MED LIST changes: -NS 1,000 ML IV ONE
[2022-02-01 13:57] LABS: APPEARANCE, URINE CLEAR (CLEAR); BACTERIA, URINE AUTO NEGATIVE (NEGATIVE); BILIRUBIN, URINE AUTO NEGATIVE (NEGATIVE); BLOOD, URINE BLOOD NEGATIVE (NEGATIVE); COLOR, URINE YELLOW (YELLOW); GLUCOSE, URINE (UA) AUTO NEGATIVE (NEGATIVE); KETONE, URINE AUTO NEGATIVE (NEGATIVE); LEUKOCYTE ESTERASE, URINE AUTO NEGATIVE (NEGATIVE); NITRITE, URINE AUTO NEGATIVE (NEGATIVE); PROTEIN, URINE AUTO NEGATIVE (NEGATIVE); RBC, URINE AUTO 1 /HPF (0-3); SPECIFIC GRAVITY URINE AUTO 1.013 (1.002-1.035); SQUAMOUS EPITHELIAL CELL UR AU 0 /HPF (0-6); UROBILINOGEN, URINE AUTO 0.2 mg/dL (0.0-2.0); WBC, URINE AUTO 0 /HPF (0-3)
== END ==
LOC: M SMT 12:51
PROVIDERS: ATTEND Urology
DX: R35.0 Frequency of micturition (principal); R39.15 Urgency of urination

== ENCOUNTER → 2022-02-09 | Outpatient (CLI) | payer BC | LOC: M RAD 13:14 | PROVIDERS: ATTEND Internal Medicine | DX: R91.1 Solitary pulmonary nodule (principal) ==

== ENCOUNTER → 2022-03-20 | Outpatient (REF) | payer BC ==
[2022-03-20 12:34] LABS: PERCENT SATURATION 4.6 % (19.7-50.0)
== END ==
LOC: M LAB REF 11:58
PROVIDERS: ATTEND Physician Assistant Medical
DX: D64.9 Anemia, unspecified (principal)

== ENCOUNTER → 2022-05-14 | Outpatient (REF) | payer BC ==
[2022-05-14 17:20] LABS: IRON (FE) 49 UG/DL (65-175); PERCENT SATURATION 12.3 % (19.7-50.0); TOTAL IRON BINDING CAPACITY 400 UG/DL (250-450); TOTAL PROTEIN 6.7 GM/DL (6.4-8.2)
[2022-05-14 17:30] LABS: VITAMIN B12 LEVEL 341 PG/ML
[2022-05-15 11:45] LABS: ALBUMIN 4.05 GM/DL (3.29-5.55); ALBUMIN % 60.5 % (55.8-66.1); ALPHA-1-GLOBULIN % 4.2 % (2.9-4.9); ALPHA-1-GLOBULINS 0.28 GM/DL (0.17-0.41); ALPHA-2-GLOBULINS 0.72 GM/DL (0.42-0.99); ALPHA-2-GLOBULINS % 10.7 % (7.1-11.8); BETA-1-GLOBULINS % 7.4 % (4.7-7.2); BETA-2-GLOBULINS % 4.6 % (3.2-6.5); GAMMA GLOBULIN % 12.6 % (11.1-18.8)
[2022-05-15 11:46] LABS: BETA-2-GLOBULINS 0.31 GM/DL (0.19-0.55); GAMMA GLOBULINS 0.84 GM/DL (0.65-1.58)
== END ==
LOC: M LAB REF 16:25
PROVIDERS: ATTEND Internal Medicine
DX: D50.9 Iron deficiency anemia, unspecified (principal); I95.1 Orthostatic hypotension

== ENCOUNTER → 2022-05-21 | Outpatient (CLI) | payer BC | LOC: M ONCR 11:16 | PROVIDERS: ATTEND General Practice | DX: Z53.21 Procedure and treatment not carried out due to patient leaving prior to being seen by health care provider (principal) ==

== ENCOUNTER → 2022-05-30 | Outpatient (CLI) | payer BC | LOC: M ONCR 12:24 | PROVIDERS: ATTEND General Practice | DX: C61 Malignant neoplasm of prostate (principal); Z79.818 Long term (current) use of other agents affecting estrogen receptors and estrogen levels; Z79.82 Long term (current) use of aspirin; Z79.84 Long term (current) use of oral hypoglycemic drugs; Z79.899 Other long term (current) drug therapy; Z87.891 Personal history of nicotine dependence; Z92.3 Personal history of irradiation ==

== ENCOUNTER → 2022-11-08 | Outpatient (REF) | payer BC ==
[~2022-11-08] MED LIST changes: +INDA1.253 PO; -INDA125TA PO
[2022-11-08 14:02] LABS: PERCENT SATURATION 20.8 % (19.7-50.0)
[2022-11-08 14:05] LABS: FERRITIN 22.5 NG/ML (10.5-307.3)
== END ==
LOC: M LAB REF 12:39
PROVIDERS: ATTEND Internal Medicine
DX: D50.9 Iron deficiency anemia, unspecified (principal)

== ENCOUNTER → 2022-12-05 | Outpatient (CLI) | payer BC | LOC: M ONCR 12:25 | PROVIDERS: ATTEND General Practice | DX: C61 Malignant neoplasm of prostate (principal); J30.2 Other seasonal allergic rhinitis; R32 Unspecified urinary incontinence; Z79.82 Long term (current) use of aspirin; Z79.84 Long term (current) use of oral hypoglycemic drugs; Z87.891 Personal history of nicotine dependence; Z92.23 Personal history of estrogen therapy; Z92.3 Personal history of irradiation ==

== ENCOUNTER → 2022-12-24 | Outpatient (CLI) | payer BC | LOC: M RAD 14:18 | PROVIDERS: ATTEND Otolaryngology | DX: R04.0 Epistaxis (principal); R09.82 Postnasal drip; J31.0 Chronic rhinitis ==

== ENCOUNTER → 2023-02-18 | Outpatient (CLI) | payer BC | LOC: M PLAIMG 13:03 | PROVIDERS: ATTEND Internal Medicine | DX: R91.8 Other nonspecific abnormal finding of lung field (principal) ==

== ENCOUNTER → 2023-03-18 | Outpatient (CLI) | payer BC ==
[~2023-03-18] MED LIST changes: +ASPI-655 PO; -ASPI1CHW3 PO
== END ==
LOC: M PLARAD 13:35
PROVIDERS: ATTEND Internal Medicine
DX: R91.1 Solitary pulmonary nodule (principal)

== ENCOUNTER → 2023-05-17 | Outpatient (REF) | payer BC ==
[~2023-05-17] MED LIST changes: +LORA1TAB23 PO; -LORA1TAB4 PO; -LOSA100T45 PO; +LOSA100T46 PO
[2023-05-17 18:01] LABS: PERCENT SATURATION 18.1 % (19.7-50.0)
[2023-05-17 18:04] LABS: FERRITIN 56.8 NG/ML (10.5-307.3)
== END ==
LOC: M LAB REF 16:53
PROVIDERS: ATTEND Internal Medicine
DX: D50.9 Iron deficiency anemia, unspecified (principal)

== ENCOUNTER → 2023-05-24 | Outpatient (CLI) | payer BC ==
[2023-05-24 12:37] LABS: CREATININE FOR GFR 1.39 MG/DL (0.70-1.30); GLOMERULAR FILTRATION RATE 52.7 (>42)
== END ==
LOC: M LAB 11:15
PROVIDERS: ATTEND Surgery
DX: R91.1 Solitary pulmonary nodule (principal)

== ENCOUNTER → 2023-05-31 | Outpatient (CLI) | payer BC ==
[~2023-05-31] MED LIST changes: +BENZ200C70 PO; +CETI10CH PO; +ISOVUE-370 76% 100ML VIAL As Ordered ONE; +POLYSOL OU
== END ==
LOC: M RAD 12:20
PROVIDERS: ATTEND Surgery
DX: R91.1 Solitary pulmonary nodule (principal)
CPT/HCPCS: 71260; Q9967

== ENCOUNTER → 2023-06-03 | Outpatient (CLI) | payer BC ==
[~2023-06-03] MED LIST changes: -ISOVUE-370 76% 100ML VIAL As Ordered ONE
== END ==
LOC: M LAB 14:40
PROVIDERS: ATTEND Urology
DX: C61 Malignant neoplasm of prostate (principal)

== ENCOUNTER 2023-06-04 10:20 | Emergency (ER) | payer BC ==
[~2023-06-04] VITALS: Ht 182.9 cm; Wt 80.9 kg
[2023-06-04 10:20] VITALS: TEMP 98.5
[~2023-06-04 10:20] MED LIST changes: -BENZ200C70 PO; -CETI10CH PO; -POLYSOL OU
[2023-06-04] MEDS ORDERED: BENZ200C70 PO (13:15)
[2023-06-04] MEDS ORDERED: CETI10CH PO (13:15)
[2023-06-04] MEDS ORDERED: POLYSOL OU (13:15)
[2023-06-04 13:35] VITALS: BP 176/68; O2SAT 96
== END 2023-06-04 13:36 | disposition home or self-care (01) ==
LOC: M ED 10:20
DX: H10.33 Unspecified acute conjunctivitis, bilateral (principal); R05.9 Cough, unspecified; H01.009 Unspecified blepharitis unspecified eye, unspecified eyelid; I10 Essential (primary) hypertension; N40.0 Benign prostatic hyperplasia without lower urinary tract symptoms; E11.9 Type 2 diabetes mellitus without complications; Z79.899 Other long term (current) drug therapy; Z79.84 Long term (current) use of oral hypoglycemic drugs; Z79.82 Long term (current) use of aspirin

== ENCOUNTER 2023-08-09 12:56 | Observation (INO) | payer BC ==
[~2023-08-09] VITALS: Ht 182.9 cm; Wt 80.9 kg
[~2023-08-09 12:56] MED LIST changes: +BENZ200C70 PO; +CETI10CH PO; -FURO40TA2; +FURO40TA2 PO; +POLYSOL OU; -ZOLP10TA2; +ZOLP10TA2 PO
[2023-08-09] MEDS ORDERED: ACETAMINOPHEN 325 MG TAB PO ONE (14:00)
[2023-08-09 14:50] LABS: BASO % 0.7 % (0.0-1.0); EOS % 0.2 % (0.0-3.0); HEMATOCRIT 36.9 % (42.0-52.0); HEMOGLOBIN 12.1 g/dl (13.5-17.5); LYMPH # 0.7 10^3/uL (1.5-5.0); MEAN CORPUSCULAR HEMOGLOBIN 28.7 pg (27.0-33.0); MEAN CORPUSCULAR HGB CONC 32.8 g/dl (32.0-36.5); MEAN CORPUSCULAR VOLUME 87.6 fl (80.0-96.0); MONO # 0.8 10^3/uL (0.0-0.8); MONO % 14.9 % (2.0-8.0); NEUTROPHILS % 70.7 % (36.0-66.0); PLATELET COUNT, AUTOMATED 122 10^3/uL (150-450); RED BLOOD COUNT 4.21 10^6/uL (4.30-6.10); WHITE BLOOD COUNT 5.6 10^3/uL (4.0-10.0)
[2023-08-09 15:20] LABS: ALBUMIN 3.4 G/DL (3.2-5.2); BILIRUBIN,DIRECT 0.2 MG/DL (<0.4); BILIRUBIN,TOTAL 0.5 MG/DL (0.3-1.2); CALCIUM LEVEL 9.3 MG/DL (8.3-10.6); CREATININE FOR GFR 1.31 MG/DL (0.70-1.30); GLOMERULAR FILTRATION RATE 56.5 (>42); POTASSIUM SERUM 4.1 MMOL/L (3.5-5.1); TOTAL PROTEIN 6.5 G/DL (5.7-8.2)
[2023-08-09 15:22] LABS: THYROID STIMULATING HORMONE 2.226 uIU/ML (0.55-4.78); THYROXINE (T4) 7.5 UG/DL (4.5-10.9)
[2023-08-09] MEDS ORDERED: MED REC IN PROGRESS XX SCH (16:55)
[2023-08-09] MEDS ORDERED: NS 1,000 ML IV ONE (17:50)
[2023-08-09] MEDS ORDERED: TIZA2CAP PO (19:03)
[2023-08-09] MEDS ORDERED: POTA1TAB23 PO (19:03)
[2023-08-09] MEDS ORDERED: DEXTROSE 50% 50ML SYRINGE IV PRN (19:10)
[2023-08-09] MEDS ORDERED: GLUCAGON INJ 1MG VIAL SC PRN (19:10)
[2023-08-09] MEDS ORDERED: GLUCOSE 4GM CHEW TABLET PO PRN (19:10)
[2023-08-09] MEDS ORDERED: HOME MED LIST COMPLETE! XX SCH (20:10)
[2023-08-09] MEDS ORDERED: PILL CUTTER 1 EACH XX PRN (20:25)
[2023-08-09] MEDS: INSULIN LISPRO (NovoLOG) PER UNIT SC SCH (21:00)
[2023-08-09 21:50] VITALS: BP 144/70; TEMP 97.9; O2SAT 96
[2023-08-09] MEDS: ACETAMINOPHEN TAB 650MG DOSE (2X325MG) PO PRN (22:20)
[2023-08-09] MEDS: HEPARIN SOD (PORCINE) 5000UNITS/ML 1ML VIAL/SYRINGE SQ SCH (22:21)
[2023-08-09] MEDS: FLUTICASONE PROP 0.05% NASAL SPRAY 16 GM (FLONASE) NARES SCH (22:21)
[2023-08-09] MEDS: zolPIDEM TARTRATE 5 MG TAB PO SCH (22:21)
[2023-08-09] MEDS: tiZANidine 4 MG TAB PO SCH (22:22)
[2023-08-09] MEDS: traZODone 100 MG TAB PO SCH (22:22)
[2023-08-09] MEDS: BENZONATATE 100MG CAPSULE PO PRN (22:54)
[2023-08-10] VITALS (11 sets, daily range): BP systolic 136–153; BP diastolic 71–91; TEMP 97.5–98.1; O2SAT 88–99
[2023-08-10 06:08] LABS: HEMATOCRIT 35.4 % (42.0-52.0); HEMOGLOBIN 11.2 g/dl (13.5-17.5); MEAN CORPUSCULAR HEMOGLOBIN 27.8 pg (27.0-33.0); MEAN CORPUSCULAR HGB CONC 31.6 g/dl (32.0-36.5); MEAN CORPUSCULAR VOLUME 87.8 fl (80.0-96.0); PLATELET COUNT, AUTOMATED 120 10^3/uL (150-450); RED BLOOD COUNT 4.03 10^6/uL (4.30-6.10); WHITE BLOOD COUNT 5.3 10^3/uL (4.0-10.0)
[2023-08-10] MEDS: HEPARIN SOD (PORCINE) 5000UNITS/ML 1ML VIAL/SYRINGE SQ SCH ×2 (06:09→14:26)
[2023-08-10 06:22] LABS: BLOOD UREA NITROGEN 16 MG/DL (9-23); CALCIUM LEVEL 9.2 MG/DL (8.3-10.6); CARBON DIOXIDE LEVEL 22 MMOL/L (20-31); CHLORIDE LEVEL 111 MMOL/L (98-107); GLOMERULAR FILTRATION RATE > 60.0 (>42); GLUCOSE, FASTING 130 MG/DL (74-106); SODIUM LEVEL 139 MMOL/L (136-145)
[2023-08-10] MEDS: INSULIN LISPRO (NovoLOG) PER UNIT SC SCH ×4 (08:41→20:22)
[2023-08-10] MEDS: LOSARTAN 50MG TABLET PO SCH (08:44)
[2023-08-10] MEDS: CARVedilol 12.5 MG TAB PO SCH (08:45)
[2023-08-10] MEDS: ASPIRIN 81MG CHEW TABLET PO SCH (08:45)
[2023-08-10] MEDS: ATORVASTATIN 20 MG TAB PO SCH (08:45)
[2023-08-10] MEDS: tiZANidine 4 MG TAB PO SCH ×2 (08:45→20:21)
[2023-08-10] MEDS: POTASSIUM CHLORIDE 10MEQ SR TABLET PO SCH (08:46)
[2023-08-10] MEDS: ACETAMINOPHEN TAB 650MG DOSE (2X325MG) PO PRN (08:46)
[2023-08-10] MEDS: FLUTICASONE PROP 0.05% NASAL SPRAY 16 GM (FLONASE) NARES SCH ×2 (08:47→20:22)
[2023-08-10 13:10] LABS: HEMOGLOBIN A1c 6.6 % (4.0-6.0)
[2023-08-10] MEDS: RIVAROXABAN 10MG TAB (XARELTO) PO SCH (17:37)
[2023-08-10] MEDS: ACETAMINOPHEN 500 MG TAB PO SCH (17:38)
[2023-08-10] MEDS: zolPIDEM TARTRATE 5 MG TAB PO SCH (20:20)
[2023-08-10] MEDS: BENZONATATE 100MG CAPSULE PO PRN (20:20)
[2023-08-10] MEDS: traZODone 100 MG TAB PO SCH (20:21)
[2023-08-11] MEDS: ACETAMINOPHEN 500 MG TAB PO SCH ×4 (00:14→17:14)
[2023-08-11 05:20] VITALS: BP 123/75; TEMP 97.9; O2SAT 97
[2023-08-11 07:18] LABS: HEMATOCRIT 36.7 % (42.0-52.0); HEMOGLOBIN 11.4 g/dl (13.5-17.5); MEAN CORPUSCULAR HEMOGLOBIN 27.6 pg (27.0-33.0); MEAN CORPUSCULAR HGB CONC 31.1 g/dl (32.0-36.5); MEAN CORPUSCULAR VOLUME 88.9 fl (80.0-96.0); PLATELET COUNT, AUTOMATED 118 10^3/uL (150-450); RED BLOOD COUNT 4.13 10^6/uL (4.30-6.10); WHITE BLOOD COUNT 4.3 10^3/uL (4.0-10.0)
[2023-08-11 07:55] LABS: BLOOD UREA NITROGEN 18 MG/DL (9-23); CALCIUM LEVEL 9.2 MG/DL (8.3-10.6); CARBON DIOXIDE LEVEL 20 MMOL/L (20-31); CHLORIDE LEVEL 112 MMOL/L (98-107); CREATININE FOR GFR 1.19 MG/DL (0.70-1.30); GLOMERULAR FILTRATION RATE > 60.0 (>42); GLUCOSE, FASTING 107 MG/DL (74-106); MAGNESIUM LEVEL 2.1 MG/DL (1.8-2.4); SODIUM LEVEL 142 MMOL/L (136-145)
[2023-08-11] MEDS: INSULIN LISPRO (NovoLOG) PER UNIT SC SCH ×4 (08:07→21:00)
[2023-08-11] MEDS: POTASSIUM CHLORIDE 10MEQ SR TABLET PO SCH (08:08)
[2023-08-11] MEDS: ATORVASTATIN 20 MG TAB PO SCH (08:08)
[2023-08-11] MEDS: CARVedilol 12.5 MG TAB PO SCH (08:10)
[2023-08-11] MEDS: LOSARTAN 50MG TABLET PO SCH (08:10)
[2023-08-11] MEDS: ASPIRIN 81MG CHEW TABLET PO SCH (08:10)
[2023-08-11] MEDS: tiZANidine 4 MG TAB PO SCH ×2 (08:10→20:49)
[2023-08-11] MEDS: FLUTICASONE PROP 0.05% NASAL SPRAY 16 GM (FLONASE) NARES SCH ×2 (08:10→20:50)
[2023-08-11] MEDS: BENZONATATE 100MG CAPSULE PO PRN ×2 (10:07→20:50)
[2023-08-11 11:30] VITALS: O2SAT 97
[2023-08-11] MEDS: RIVAROXABAN 10MG TAB (XARELTO) PO SCH (17:14)
[2023-08-11] MEDS: traZODone 100 MG TAB PO SCH (20:50)
[2023-08-11] MEDS: zolPIDEM TARTRATE 5 MG TAB PO SCH (20:50)
[2023-08-12] MEDS: ACETAMINOPHEN 500 MG TAB PO SCH ×3 (00:14→10:57)
[2023-08-12 04:51] VITALS: BP 148/86; TEMP 97.7; O2SAT 94
[2023-08-12 06:28] LABS: HEMATOCRIT 35.7 % (42.0-52.0); HEMOGLOBIN 11.2 g/dl (13.5-17.5); MEAN CORPUSCULAR HEMOGLOBIN 27.9 pg (27.0-33.0); MEAN CORPUSCULAR HGB CONC 31.4 g/dl (32.0-36.5); MEAN CORPUSCULAR VOLUME 88.8 fl (80.0-96.0); PLATELET COUNT, AUTOMATED 134 10^3/uL (150-450); RED BLOOD COUNT 4.02 10^6/uL (4.30-6.10); WHITE BLOOD COUNT 4.1 10^3/uL (4.0-10.0)
[2023-08-12 06:57] LABS: CALCIUM LEVEL 9.1 MG/DL (8.3-10.6); CREATININE FOR GFR 1.27 MG/DL (0.70-1.30); GLOMERULAR FILTRATION RATE 58.5 (>42); MAGNESIUM LEVEL 1.8 MG/DL (1.8-2.4)
[2023-08-12] MEDS: INSULIN LISPRO (NovoLOG) PER UNIT SC SCH ×4 (07:30→21:00)
[2023-08-12] MEDS: ATORVASTATIN 20 MG TAB PO SCH (10:09)
[2023-08-12] MEDS: ASPIRIN 81MG CHEW TABLET PO SCH (10:09)
[2023-08-12] MEDS: POTASSIUM CHLORIDE 10MEQ SR TABLET PO SCH (10:10)
[2023-08-12] MEDS: FLUTICASONE PROP 0.05% NASAL SPRAY 16 GM (FLONASE) NARES SCH ×2 (10:11→20:12)
[2023-08-12] MEDS: tiZANidine 4 MG TAB PO SCH ×2 (10:11→20:13)
[2023-08-12] MEDS: LOSARTAN 50MG TABLET PO SCH (10:11)
[2023-08-12] MEDS: CARVedilol 12.5 MG TAB PO SCH (10:11)
[2023-08-12] MEDS ORDERED: ACET-683 PO (10:43)
[2023-08-12 13:22] VITALS: O2SAT 92
[2023-08-12] MEDS: BENZONATATE 100MG CAPSULE PO PRN (14:29)
[2023-08-12] MEDS: RIVAROXABAN 10MG TAB (XARELTO) PO SCH (17:45)
[2023-08-12] MEDS: zolPIDEM TARTRATE 5 MG TAB PO SCH (20:13)
[2023-08-12] MEDS: traZODone 100 MG TAB PO SCH (20:13)
[2023-08-12 22:00] VITALS: O2SAT 85
[2023-08-12 22:01] VITALS: O2SAT 93
[2023-08-13 02:30] VITALS: O2SAT 95
[2023-08-13 05:21] VITALS: BP 150/82; TEMP 97.7; O2SAT 97
[2023-08-13 05:54] LABS: HEMATOCRIT 35.6 % (42.0-52.0); HEMOGLOBIN 11.5 g/dl (13.5-17.5); MEAN CORPUSCULAR HEMOGLOBIN 28.4 pg (27.0-33.0); MEAN CORPUSCULAR HGB CONC 32.3 g/dl (32.0-36.5); MEAN CORPUSCULAR VOLUME 87.9 fl (80.0-96.0); PLATELET COUNT, AUTOMATED 150 10^3/uL (150-450); RED BLOOD COUNT 4.05 10^6/uL (4.30-6.10); WHITE BLOOD COUNT 5.1 10^3/uL (4.0-10.0)
[2023-08-13 06:26] LABS: BLOOD UREA NITROGEN 17 MG/DL (9-23); CALCIUM LEVEL 9.3 MG/DL (8.3-10.6); CARBON DIOXIDE LEVEL 22 MMOL/L (20-31); CHLORIDE LEVEL 111 MMOL/L (98-107); CREATININE FOR GFR 1.19 MG/DL (0.70-1.30); GLOMERULAR FILTRATION RATE > 60.0 (>42); GLUCOSE, FASTING 106 MG/DL (74-106); SODIUM LEVEL 141 MMOL/L (136-145)
[2023-08-13] MEDS: INSULIN LISPRO (NovoLOG) PER UNIT SC SCH (07:14)
[2023-08-13 09:08] VITALS: BP 162/99
[2023-08-13] MEDS: ASPIRIN 81MG CHEW TABLET PO SCH (09:08)
[2023-08-13] MEDS: FLUTICASONE PROP 0.05% NASAL SPRAY 16 GM (FLONASE) NARES SCH (09:08)
[2023-08-13 09:09] VITALS: BP 162/99
[2023-08-13] MEDS: CARVedilol 12.5 MG TAB PO SCH (09:09)
[2023-08-13] MEDS: LOSARTAN 50MG TABLET PO SCH (09:09)
[2023-08-13] MEDS: tiZANidine 4 MG TAB PO SCH (09:09)
[2023-08-13] MEDS: ATORVASTATIN 20 MG TAB PO SCH (09:09)
[2023-08-13] MEDS: POTASSIUM CHLORIDE 10MEQ SR TABLET PO SCH (09:09)
[2023-08-13] MEDS: BENZONATATE 100MG CAPSULE PO PRN (10:36)
== END 2023-08-13 11:48 | disposition home or self-care (01) ==
LOC: M ED 12:56 → M ED INP 12:57 → ENRESERV 19:55 → M MSPAV 21:51
PROVIDERS: ADMIT Internal Medicine; ATTEND Internal Medicine
DX: U07.1 COVID-19 (principal); R53.1 Weakness; R26.81 Unsteadiness on feet; R94.4 Abnormal results of kidney function studies; D69.6 Thrombocytopenia, unspecified; J30.1 Allergic rhinitis due to pollen; I12.9 Hypertensive chronic kidney disease with stage 1 through stage 4 chronic kidney disease, or unspecified chronic kidney disease; E78.5 Hyperlipidemia, unspecified; Z85.46 Personal history of malignant neoplasm of prostate; N18.30 Chronic kidney disease, stage 3 unspecified; G47.00 Insomnia, unspecified; F32.A Depression, unspecified; R73.03 Prediabetes; G47.33 Obstructive sleep apnea (adult) (pediatric); Z79.899 Other long term (current) drug therapy; Z79.82 Long term (current) use of aspirin; Z79.84 Long term (current) use of oral hypoglycemic drugs
CPT/HCPCS: 36415; 71045; 80048; 80076; 81001; 83036; 83605; 83735; 83880; 84436; 84443; 85025; 85027; 87040; 87486; 87581; 87633; 87798; 93005; 93041; 94760; 96360; 96372; 97161; 97530; 99285; J1815

== ENCOUNTER → 2023-12-02 | Outpatient (CLI) | payer BC ==
[~2023-12-02] MED LIST changes: +ACET-683 PO; +POTA1TAB23 PO; +TIZA2CAP PO
== END ==
LOC: M LAB 13:23
PROVIDERS: ATTEND General Practice
DX: C61 Malignant neoplasm of prostate (principal)

== ENCOUNTER → 2023-12-25 | Outpatient (CLI) | payer BC | LOC: M ONCR 10:07 | PROVIDERS: ATTEND General Practice | DX: Z08 Encounter for follow-up examination after completed treatment for malignant neoplasm (principal); Z85.46 Personal history of malignant neoplasm of prostate; Z71.2 Person consulting for explanation of examination or test findings; Z87.891 Personal history of nicotine dependence; Z79.82 Long term (current) use of aspirin; Z79.84 Long term (current) use of oral hypoglycemic drugs; Z79.899 Other long term (current) drug therapy; Z92.29 Personal history of other drug therapy; Z92.3 Personal history of irradiation ==

== ENCOUNTER 2024-03-13 07:39 | Day surgery (SDC) | payer BC ==
[~2024-03-13] VITALS: Ht 182.9 cm; Wt 94.9 kg
[2024-03-13] MEDS: ceFAZolin SOD 2 GM in IV 1 EA IV ONE (06:00)
[~2024-03-13 07:39] MED LIST changes: -TRAZ-257; +TRAZ-257 PO
[2024-03-13] MEDS ORDERED: CelecoXIB 400 MG CAP PO ONE (08:25)
[2024-03-13] MEDS ORDERED: MIDAZOLAM INJ 2MG/2ML VIAL As Ordered ONE (08:57)
[2024-03-13] MEDS ORDERED: ONDANSETRON 4MG 2ML VIAL As Ordered ONE (08:57)
[2024-03-13] MEDS ORDERED: LIDOCAINE 2% 100MG/5ML SDV (FOR ANES.) As Ordered ONE (08:57)
[2024-03-13] MEDS ORDERED: propofoL 200 MG/20 ML VIAL As Ordered ONE (08:57)
[2024-03-13] MEDS ORDERED: fentaNYL 100 MCG/2 ML INJECTION As Ordered ONE (08:58)
[2024-03-13] MEDS ORDERED: KETOROLAC 60MG 2ML VIAL As Ordered ONE (08:59)
[2024-03-13] MEDS ORDERED: PHENYLephrine 500MCG 5ML (100MCG/ML) SYRINGE As Ordered ONE (09:43)
[2024-03-13] MEDS ORDERED: ePHEDrine SULFATE 25 MG/5 ML(5MG/ML) SYRINGE As Ordered ONE (09:43)
[2024-03-13] MEDS ORDERED: ACETAMINOPHEN 1000MG 100ML IV BAG As Ordered ONE (10:19)
[2024-03-13] MEDS: LIDOCAINE 1% SDV 30ML VIAL As Ordered ONE (10:30)
[2024-03-13] MEDS ORDERED: ONDANSETRON 4MG 2ML VIAL IV PRN (10:45)
[2024-03-13] MEDS ORDERED: fentaNYL 100 MCG/2 ML INJECTION IV PRN (10:45)
[2024-03-13] MEDS ORDERED: oxyCODONE 5MG TAB PO PRN (10:45)
[2024-03-13] MEDS ORDERED: MORPHINE 2 MG/ML 1ML VIAL IV PRN (10:45)
[2024-03-13 11:58] VITALS: BP 152/90; TEMP 96.8; O2SAT 95
[2024-03-13] MEDS ORDERED: NORCO, ANEXSIA 5/325MG TABLET (HYDROcodone/ACETAMINOPHEN) PO PRN (13:10)
[2024-03-13] MEDS ORDERED: KETOROLAC 30 MG/ML 1ML VIAL IV SCH (17:00)
== END 2024-03-13 12:42 | disposition home or self-care (01) ==
LOC: M SDC 07:39
PROVIDERS: ATTEND Surgery
DX: D17.22 Benign lipomatous neoplasm of skin and subcutaneous tissue of left arm (principal); I10 Essential (primary) hypertension; E78.00 Pure hypercholesterolemia, unspecified; G47.30 Sleep apnea, unspecified; Z85.46 Personal history of malignant neoplasm of prostate; Z79.899 Other long term (current) drug therapy; Z79.82 Long term (current) use of aspirin; Z87.891 Personal history of nicotine dependence; Z92.3 Personal history of irradiation
CPT/HCPCS: 24075; 88304; J0131; J0665; J1100; J1885; J2250; J2371; J2405; J3010

== ENCOUNTER → 2024-03-25 | Outpatient (CLI) | payer BC | LOC: M PLAIMG 08:50 | PROVIDERS: ATTEND Nurse Practitioner Family | DX: R91.1 Solitary pulmonary nodule (principal) ==

== ENCOUNTER → 2024-07-07 | Outpatient (CLI) | payer BC | LOC: M LAB 14:09 | PROVIDERS: ATTEND Urology | DX: C61 Malignant neoplasm of prostate (principal) ==

== ENCOUNTER → 2024-09-14 | Outpatient (CLI) | payer BC, MEDICARE | LOC: M RAD 12:48 | PROVIDERS: ATTEND Nurse Practitioner Family | DX: R91.1 Solitary pulmonary nodule (principal) ==

== ENCOUNTER → 2024-12-07 | Outpatient (CLI) | payer BC, MEDICARE | LOC: M PLARAD 08:19 | PROVIDERS: ATTEND Nurse Practitioner Family | DX: R91.1 Solitary pulmonary nodule (principal) | CPT/HCPCS: 78815; A9552 ==

== ENCOUNTER → 2024-12-16 | Outpatient (CLI) | payer BC, MEDICARE | LOC: M LAB 12:58 | PROVIDERS: ATTEND General Practice | DX: C61 Malignant neoplasm of prostate (principal) ==

== ENCOUNTER → 2025-01-01 | Outpatient (CLI) | payer BC | LOC: M ONCR 10:00 | PROVIDERS: ATTEND General Practice | DX: C61 Malignant neoplasm of prostate (principal); Z92.3 Personal history of irradiation; Z87.891 Personal history of nicotine dependence; J30.2 Other seasonal allergic rhinitis; Z79.899 Other long term (current) drug therapy; Z79.82 Long term (current) use of aspirin; Z92.29 Personal history of other drug therapy ==

== ENCOUNTER → 2025-01-27 | Outpatient (REF) | payer BC ==
[2025-01-27 17:37] LABS: PERCENT SATURATION 34.8 % (19.7-50.0)
[2025-01-27 17:40] LABS: FERRITIN 191.4 NG/ML (10.5-307.3)
== END ==
LOC: M LAB REF 16:41
PROVIDERS: ATTEND Internal Medicine
DX: D50.9 Iron deficiency anemia, unspecified (principal)

== ENCOUNTER → 2025-03-23 | Outpatient (CLI) | payer BC ==
[2025-03-23 15:23] LABS: ALBUMIN 3.8 G/DL (3.2-5.2); BILIRUBIN,TOTAL 0.7 MG/DL (0.3-1.2); CREATININE FOR GFR 1.73 MG/DL (0.70-1.30); GLOMERULAR FILTRATION RATE 39.7 (>42); POTASSIUM SERUM 4.7 MMOL/L (3.5-5.1); TOTAL PROTEIN 6.6 G/DL (5.7-8.2)
== END ==
LOC: M LAB 14:04
PROVIDERS: ATTEND Physician Assistant
DX: B35.1 Tinea unguium (principal)

== ENCOUNTER → 2025-03-30 | Outpatient (CLI) | payer BC ==
[~2025-03-30] MED LIST changes: -FLOM0.4C39 PO; +TAMS-18 PO
== END ==
LOC: M RAD 10:37
PROVIDERS: ATTEND Nurse Practitioner Family
DX: R91.1 Solitary pulmonary nodule (principal); R06.02 Shortness of breath

== ENCOUNTER → 2025-04-13 | Outpatient (CLI) | payer BC | LOC: M PLARAD 12:38 | PROVIDERS: ATTEND Nurse Practitioner Family | DX: C34.32 Malignant neoplasm of lower lobe, left bronchus or lung (principal) | CPT/HCPCS: 78815; A9552 ==

== ENCOUNTER → 2025-04-14 | Outpatient (CLI) | payer BC, MEDICARE | LOC: M ONCR 08:14 | PROVIDERS: ATTEND General Practice | DX: C34.12 Malignant neoplasm of upper lobe, left bronchus or lung (principal); J30.2 Other seasonal allergic rhinitis; Z79.82 Long term (current) use of aspirin; Z79.899 Other long term (current) drug therapy; Z85.46 Personal history of malignant neoplasm of prostate; Z87.891 Personal history of nicotine dependence; Z92.3 Personal history of irradiation; Z92.29 Personal history of other drug therapy ==

== ENCOUNTER 2025-05-14 12:11 | Outpatient (RCR) | payer BC | END 2025-05-31 | LOC: M ONCR 12:11 | PROVIDERS: ATTEND General Practice | DX: Z51.0 Encounter for antineoplastic radiation therapy (principal); C34.12 Malignant neoplasm of upper lobe, left bronchus or lung ==

== ENCOUNTER → 2025-07-15 | Outpatient (CLI) | payer BC ==
[2025-07-15 17:33] LABS: APPEARANCE, URINE CLEAR (CLEAR); BACTERIA, URINE AUTO NEGATIVE (NEGATIVE); BILIRUBIN, URINE AUTO NEGATIVE (NEGATIVE); BLOOD, URINE BLOOD NEGATIVE (NEGATIVE); GLUCOSE, URINE (UA) AUTO NEGATIVE (NEGATIVE); KETONE, URINE AUTO NEGATIVE (NEGATIVE); LEUKOCYTE ESTERASE, URINE AUTO NEGATIVE (NEGATIVE); NITRITE, URINE AUTO NEGATIVE (NEGATIVE); PROTEIN, URINE AUTO NEGATIVE (NEGATIVE); RBC, URINE AUTO 0 /HPF (0-3); SPECIFIC GRAVITY URINE AUTO 1.008 (1.002-1.035); SQUAMOUS EPITHELIAL CELL UR AU 0 /HPF (0-6); UROBILINOGEN, URINE AUTO 0.2 mg/dL (0.0-2.0); WBC, URINE AUTO 1 /HPF (0-3)
== END ==
LOC: M LAB 15:09
PROVIDERS: ATTEND Urology
DX: C61 Malignant neoplasm of prostate (principal); N32.81 Overactive bladder

== ENCOUNTER → 2025-08-03 | Outpatient (CLI) | payer BC ==
[~2025-08-03] MED LIST changes: -ASPI-655 PO; +ASPI-737 PO; +ISOVUE-370 76% 100 ML VIAL As Ordered ONE; +ZOLP10TA11 PO; -ZOLP10TA2 PO
== END ==
LOC: M RAD 12:57
PROVIDERS: ATTEND General Practice
DX: C34.12 Malignant neoplasm of upper lobe, left bronchus or lung (principal)
CPT/HCPCS: 71260; Q9967

== ENCOUNTER → 2025-08-13 | Outpatient (CLI) | payer BC ==
[~2025-08-13] MED LIST changes: -ISOVUE-370 76% 100 ML VIAL As Ordered ONE
== END ==
LOC: M ONCR 09:10
PROVIDERS: ATTEND General Practice
DX: C61 Malignant neoplasm of prostate (principal); C34.12 Malignant neoplasm of upper lobe, left bronchus or lung; Z92.3 Personal history of irradiation; Z92.29 Personal history of other drug therapy; Z87.891 Personal history of nicotine dependence; J30.2 Other seasonal allergic rhinitis; Z79.82 Long term (current) use of aspirin; Z79.899 Other long term (current) drug therapy